=== PATIENT | male | born 1990 | race American Indian/Alaskan Native ===

== ENCOUNTER 2018-09-17 01:54 | Emergency (ER) | payer OTHER ==
[2018-09-17] MEDS ORDERED: REGLAN ONE (05:43)
[2018-09-17] MEDS ORDERED: BENADRYL ONE (05:43)
[2018-09-17] MEDS ORDERED: TORADOL ONE (05:43)
[2018-09-17] MEDS ORDERED: BENADRYL IV ONE (05:55)
[2018-09-17] MEDS ORDERED: REGLAN IV ONE (05:55)
[2018-09-17] MEDS ORDERED: TORADOL IV ONE (05:55)
[2018-09-17 06:42] VITALS: BP 129/76
--- NOTE | 2018-09-17 06:43 | Emergency Department Report ---
ED Headache HPI - General Chief Complaint: Headache Stated Complaint: MIGRAINE Time Seen by Provider: 09/17/18 06:35 Source: patient, family - History of Present Illness Initial Comments: 27-year-old -[place] Citizen male presents to the emergency room for headaches since 1300 yesterday and vomited 2 times in [place] here in the emergency room. Patient family reports that he ate some bad food yesterday morning. Patient admits to decrease in appetite denies any fever reports left lower quadrant pain that comes and goes. Patient reports she's been drinking gavino betty. He has a past medical history of asthma. Patient was having nausea and vomiting but that has resolved since having medication. Patient denies any trauma to his head. Denies worse headache of his life. Quality: sharp Head Injury Location: frontal Recent Head Trauma: no recent headache/trauma Associated Symptoms: nausea/vomiting Allergies/Adverse Reactions: Allergies No Known Allergies Allergy (Verified 09/17/18 02:06) ED Review of Systems ROS: Stated complaint: MIGRAINE Other details as noted in HPI Comment: All other systems reviewed and negative Constitutional: denies: chills, fever Eyes: denies: eye pain, eye discharge, vision change ENT: denies: ear pain, throat pain Respiratory: denies: cough, shortness of breath, wheezing Cardiovascular: denies: chest pain, palpitations Gastrointestinal: abdominal pain, nausea, vomiting Genitourinary: denies: urgency, dysuria Musculoskeletal: denies: back pain, joint swelling, arthralgia Skin: denies: rash, lesions Neurological: headache Psychiatric: denies: anxiety, depression Hematological/Lymphatic: denies: easy bleeding, easy bruising ED Past Medical Hx - Past Medical History Hx Asthma: Yes - Surgical History Past Surgical History?: No - Social History Smoking Status: Never Smoker Substance Use Type: None ED Physical Exam - General Limitations: No Limitations General appearance: alert - Head Head exam: Present: atraumatic, normocephalic - Eye Eye exam: Present: EOMI - ENT ENT exam: Present: mucous membranes moist - Respiratory Respiratory exam: Present: normal lung sounds bilaterally. Absent: respiratory distress - Cardiovascular Cardiovascular Exam: Present: regular rate, normal rhythm. Absent: systolic murmur, diastolic murmur, rubs, gallop - GI/Abdominal GI/Abdominal exam: Present: soft, normal bowel sounds. Absent: distended, guarding, rebound, rigid - Neurological Exam Neurological exam: Present: normal gait - Expanded Neurological Exam Expanded Patient oriented to: Present: person, place, time Cranial nerves: EOM's Intact: Normal, Gag Reflex: Normal, Tongue Deviation: Normal, Nystagmus: Normal, Facial Sensation: Normal, Facial Palsy with Forehead Movement: Normal, Facial Palsy without Forehead Movement: Normal Cerebellar function: Finger to Nose: Normal, Heel to Justin: Normal, Romberg: Normal Upper motor neuron: [place] Neglect: Normal, Pronator Drift: Normal, Babinski Sign: Normal, Sensory Extinction: Normal Sensory exam: Upper Extremity Light Touch: Normal, Upper Extremity Pin Prick: Normal, Upper Extremity Temperature: Normal, UE 2 Point Discrimination: Normal, Lower Extremity Light Touch: Normal, Lower Extremity Pin Prick: Normal, Lower Extremity Temperature: Normal, LE 2 Point Discrimination: Normal Motor strength exam: RUE: 5, LUE: 5, RLE: 5, LLE: 5 Best Eye Response ([place]): (4) open spontaneously Best Motor Response ([place]): (6) obeys commands Best Verbal Response ([place]): (5) oriented Beba Total: 15 - Psychiatric Psychiatric exam: Present: normal affect, normal mood - Skin Skin exam: Present: warm, dry, intact, normal color. Absent: rash ED Course Vital Signs 09/17/18 09/17/18 01:57 06:48 Temperature 97.8 F Pulse Rate 60 88 Respiratory 16 16 Rate Blood Pressure 129/76 [Right] O2 Sat by Pulse 99 100 Oximetry ED Medical Decision Making - Medical Decision Making Patient has been evaluated by this provider in [facility]. Patient has been given Reglan, Toradol, Benadryl for headache which patient reports has helped. Patient will be referred to [facility] if he has any other compl aints. Critical care attestation.: If time is entered above; I have spent that time in minutes in the direct care of this critically ill patient, excluding procedure time. ED Disposition Clinical Impression: Headache Qualifiers: Headache type: unspecified Headache chronicity pattern: acute headache Intractability: intractable Qualified Code(s): R51 - Headache Disposition: DC-01 TO HOME OR SELFCARE Is pt being admited?: No Does the pt Need Aspirin: No Condition: Stable Instructions: Acute Headache (ED) Additional Instructions: Tylenol and or Motrin for headache and pain. Follow-up with a primary care provider if his symptoms persist or gets worse. Referrals: SILAS CHAPA MD [Primary Care Provider] - 3-5 Days Forms: Accompanied Note
== END 2018-09-17 06:48 | disposition home or self-care (01) ==
LOC: ED 01:54
DX: R51 Headache (principal); R11.2 Nausea with vomiting, unspecified; J45.909 Unspecified asthma, uncomplicated
CPT/HCPCS: 96374; 96375; 99282; J1200; J1885; J2765